=== PATIENT | female | born 1985 | race Caucasian/White ===

== ENCOUNTER 2019-07-16 03:31 | Inpatient (IN) ==
[2019-07-16] MEDS ORDERED: OXYTOCIN 30 UNITS/500 ML BAG IV PRN ×3 (04:23→14:51)
[2019-07-16 04:54] LABS: Mean Platelet Volume 9.5 fL (7.4-10.4); Platelet Count 217 K/uL (130-400); RDW Coefficient of Variation 13.6 % (11.5-14.5); RDW Standard Deviation 44.7 fL (36.4-46.3); White Blood Count 9.87 K/uL (4.8-10.8)
[2019-07-16 05:05] LABS: Mean Corpuscular Hgb Conc 33.3 g/dL (32-36)
[2019-07-16] MEDS: LACTATED RINGER'S 1,000 ML IV PRN ×2 (06:46→09:24)
--- NOTE | 2019-07-16 06:55 | History & Physical Report ---
Date of Service July 16, 2019 Assessment & Plan (1) Uterine contractions at greater than 20 weeks of gestation: 33 yo at 40.3 wks with contractions and cervical change VSS Afebrile GBS negative FHR reassuring Plan to IVF with filter, monitor, expectant management and anticipate (2) Post-term , 40-42 weeks of gestation: History of Present Illness Chief Complaint: Contractions Primary Care Provider: NO PCP Patient is a 33 yo at 40.3 wks who was scheduled for IOL for today She woke up with contractions at 01:45 am, got closer and more painful. No LOF/VB +FM No problems with this She is recently found out to have Patent Foramen ovale and need f/u with cardiology for CATARINO No other problems GBS negative Allergies Allergy/AdvReac Type Severity Reaction Status Date / Time cat dander Allergy Severe SHORTNESS Verified 07/16/19 03:47 OF BREATH pollen extracts Allergy Severe TREES- Verified 07/16/19 03:47 SHORTNESS OF BREATH Sulfa (Sulfonamide Allergy Mild RASH Verified 07/16/19 03:47 Antibiotics) Home Medications Home Medications Medication Instructions Recorded Confirmed Type docusate sodium [Colace] 100 mg PO TID 07/14/19 07/16/19 History vit no.[id number] 1 tab PO DAILY 07/14/19 07/16/19 History [ Vitamin] Patient History Medical History Anxiety PFO (patent foramen ovale) (~06/18/19) vascular technician recommended filter tubing for IV Social History Preferred Language: [place]ian Communication Ability: Effective Tenant Relations Coordinator Required: No Beliefs That Will Affect Care: None marital status: Current Living Situation: Family Other Information That Helps Us Care for You: No Feels Safe at Home: Yes Safety Concerns: Feels Safe At This Time Smoking Status: Never smoker Second Hand Exposure: No ; Hx Alcohol Use: No Hx Substance Use: No 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
[2019-07-16] MEDS ORDERED: fentaNYL citrate 100 MCG/2 ML VIAL ONE (08:44)
[2019-07-16] MEDS ORDERED: ePHEDrine sulfate 50 MG/ML AMP ONE (08:44)
[2019-07-16] MEDS ORDERED: BUPIVACAINE 0.25% 30 ML VIAL ONE (08:44)
[2019-07-16] MEDS ORDERED: fentaNYL 2MCG/ML ROPIV 1.25MG/ML 100 ML BAG EPI ONE (08:45)
--- NOTE | 2019-07-16 09:42 | Anesthesiology Consultation ---
Date of Service July 16, 2019 Assessment & Plan Chart Review Chart Review: Acceptable Risk for Labor Epidural Consults Requested none History Height/Weight Height: 5 ft 1.5 in Weight: 79.832 kg Allergies Allergy/AdvReac Type Severity Reaction Status Date / Time cat dander Allergy Severe SHORTNESS Verified 07/16/19 03:47 OF BREATH pollen extracts Allergy Severe TREES- Verified 07/16/19 03:47 SHORTNESS OF BREATH Sulfa (Sulfonamide Allergy Mild RASH Verified 07/16/19 03:47 Antibiotics) Medications Home Medications Medication Instructions Recorded Confirmed Last Taken docusate sodium [Colace] 100 mg PO TID 07/14/19 07/16/19 07/15/19 vit no.[id number] 1 tab PO DAILY 07/14/19 07/16/19 07/15/19 [ Vitamin] Active Medications Generic Name Dose Route Start Last Admin Trade Name Freq PRN Reason Stop Dose Admin Lactated Ringer's 1,000 mls @ 150 mls/hr 07/16/19 04:23 07/16/19 09:40 Lr IV 07/18/19 04:22 125 mls/hr .Q6H40M PRN Infusion L&D Protocol Protocol Past Medical History Medical History Anxiety PFO (patent foramen ovale) (~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
[2019-07-16] MEDS ORDERED: NALOXONE HCL 0.4 MG/1 ML VIAL/CARP IV PRN (09:43)
[2019-07-16] MEDS ORDERED: fentaNYL 2MCG/ML ROPIV 1.25MG/ML 100 ML BAG EPI PRN (09:43)
[2019-07-16] MEDS ORDERED: DiphenhydrAMINE HCL 50 MG/ML VIAL IV PRN (09:43)
[2019-07-16] MEDS ORDERED: ePHEDrine sulfate 50 MG/ML AMP IV PRN (09:43)
[2019-07-16] MEDS ORDERED: NALOXONE HCL 1 MG in SODIUM CHLORIDE 0.9% 1000ML 1,000 ML IV PRN (09:43)
[2019-07-16] MEDS ORDERED: NALBUPHINE HCL INJ 10 MG/ML AMP IV PRN (09:43)
--- NOTE | 2019-07-16 11:22 | Obstetrical Progress Note ---
Date of Service July 16, 2019 Assessment & Plan Admission and Anticipated Discharge Date Admission Date: July 16, 2019 Subjective Pt doing well FHR; CAT1 Ctx: Irregular VE:/-2 Pt agreeable to AROM Performed with amnio hook- clear fluid Discussed Pitocin augmentation if ctx do not increase in frequency,duration and intensity pt is agreeable Results & Data ([facility]) Vital Signs (Past 12 Hours) Vital Signs Temp Pulse Resp BP Pulse Ox 07/16/19 11:14 72 98 07/16/19 11:09 65 97 07/16/19 11:04 82 126/75 97 07/16/19 11:01 36.5 C 20 07/16/19 10:59 66 96 07/16/19 10:54 59 L 95 07/16/19 10:49 58 L 97 07/16/19 10:48 71 100/65 07/16/19 10:46 20 07/16/19 10:44 60 95 07/16/19 10:39 61 99 07/16/19 10:34 58 L 100 07/16/19 10:33 63 101/65 07/16/19 10:29 72 98 07/16/19 10:24 69 97 07/16/19 10:19 70 99 07/16/19 10:15 20 07/16/19 10:14 73 99 07/16/19 10:10 73 92 07/16/19 10:09 68 97 07/16/19 10:04 75 100 07/16/19 10:01 81 96/61 L 07/16/19 09:59 71 96 07/16/19 09:57 79 104/58 L 07/16/19 09:54 77 97 07/16/19 09:52 67 93/58 L 07/16/19 09:49 67 95 07/16/19 09:47 79 94 07/16/19 09:46 79 97/61 L 07/16/19 09:45 20 07/16/19 09:44 81 95 07/16/19 09:41 80 106/68 07/16/19 09:39 77 111/72 97 07/16/19 09:37 68 111/70 07/16/19 09:35 75 111/69 07/16/19 09:34 69 99 07/16/19 09:33 73 111/72 07/16/19 09:29 72 97 07/16/19 09:24 65 100 07/16/19 09:21 75 124/78 07/16/19 09:19 84 99 07/16/19 07:19 36.8 C 20 07/16/19 07:06 72 107/71 07/16/19 03:56 93 H 108/76 07/16/19 03:51 36.5 C 18
[2019-07-16] MEDS ORDERED: miSOPROStoL 200 MCG TAB ONE (14:42)
[2019-07-16] MEDS ORDERED: METHYLERGONOVINE MALEATE 0.2 MG/ML AMP ONE (14:42)
[2019-07-16] MEDS ORDERED: miSOPROStoL 200 MCG TAB PR ONE ×2 (14:51→15:53)
[2019-07-16] MEDS ORDERED: DIPHTHERIA/TETANUS/PERTUSSIS 0.5 ML SYR/VIAL IM ONE (14:51)
[2019-07-16] MEDS ORDERED: BENZOCAINE 20% AER SPR 82.5 GM CAN EXT PRN (14:51)
[2019-07-16] MEDS ORDERED: SUPERCREAM 0.870% 15 GM JAR EXT PRN (14:51)
[2019-07-16] MEDS ORDERED: HYDROCORTISONE ACETATE 25 MG SUPP PR PRN (14:51)
[2019-07-16] MEDS ORDERED: ACETAMINOPHEN 325 MG TAB PO PRN (14:51)
[2019-07-16] MEDS ORDERED: METHYLERGONOVINE MALEATE 0.2 MG/ML AMP IM ONE (14:51)
[2019-07-16] MEDS ORDERED: bisacodyL 10 MG SUPP PR PRN (14:51)
--- NOTE | 2019-07-16 15:03 | Delivery Summary ---
DATE OF OPERATION: 07/16/2019 DELIVERY NOTE The patient delivered a live female in left occiput anterior presentation with a right hand compound presentation. was delivered. Cord was clamped and cut after 1 minute. There was no nuchal cord. Inspection of the perineum showed no laceration or tears. Placenta was spontaneously delivered after cord blood was obtained. Inspection of the placenta showed grossly normal placenta. There was, however, small calcifications. The patient is post-dates. Placenta was therefore sent to pathology for pathological analysis. Estimated blood loss is 450 mL. Baby and mother are doing well in recovery. All instruments were removed from the vagina including retractors, sponge and laps and accounted for x2. I attest to the content of the Intraoperative Record and any orders documented therein. Any exception s are noted below.
--- NOTE | 2019-07-16 15:35 | Anesthesia Procedure Note ---
Date of Service July 16, 2019 Anesthesia Post Epidural Note Vital Signs Vital Signs: Temp Pulse Resp BP Pulse Ox 36.8 C 69 20 120/76 100 07/16/19 13:02 07/16/19 15:32 07/16/19 14:48 07/16/19 15:32 07/16/19 14:34 Pain Intensity Abdomen: Pain Intensity: 0 Notes Mental Status: alert / awake / arousable Nausea / Vomiting: adequately controlled Pain: adequately controlled Airway Patency, RR, SpO2: stable & adequate BP & HR: stable & adequate Hydration State: stable & adequate Neuraxial Anesthesia: was administered and sensory block is resolving Anesthetic Complications: no major complications apparent and Pt Satisfied with anesthetic care Epidural: Removed without complications and With tip intact
[2019-07-16] MEDS: IBUPROFEN 600 MG TAB PO PRN (20:14)
[2019-07-16] MEDS: DOCUSATE SODIUM 100 MG CAP PO SCH (20:14)
[2019-07-17] MEDS: IBUPROFEN 600 MG TAB PO PRN ×3 (03:39→15:58)
[2019-07-17 06:39] LABS: Hematocrit (blood only) 36.1 % (37-47); Hemoglobin 11.8 g/dL (12.0-16.0); Mean Corpuscular Hemoglobin 29.7 pg (25-34); Mean Corpuscular Hgb Conc 32.7 g/dL (32-36); Mean Corpuscular Volume 90.9 fL (80-100); Mean Platelet Volume 9.5 fL (7.4-10.4); Platelet Count 205 K/uL (130-400); RDW Coefficient of Variation 13.9 % (11.5-14.5); RDW Standard Deviation 45.9 fL (36.4-46.3); Red Blood Count 3.97 M/uL (4.2-5.4); White Blood Count 12.11 K/uL (4.8-10.8)
[2019-07-17] MEDS ORDERED: PRENATAL VITAMIN 1 TAB PO SCH (08:00)
[2019-07-17] MEDS ORDERED: FERROUS SULFATE 325 MG TAB PO SCH (08:00)
--- NOTE | 2019-07-17 08:01 | Obstetrical Progress Note ---
Date of Service July 17, 2019 Assessment & Plan Admission and Anticipated Discharge Date Admission Date: July 16, 2019 Subjective Patient is seen and examined. She feels well, no complaints. Ambulating without dizziness Voiding without difficulty Tolerating regular diet with out N&V Bleeding is minimal No fever/ chills/ CP/ SOB/ N&V/ Leg pain Breast feeding without problems Vital Signs Temp Pulse Pulse Resp BP BP Pulse Ox 07/17/19 03:35 36.4 C L 67 18 115/73 07/16/19 23:45 36.7 C 69 18 104/69 07/16/19 19:50 36.9 C 71 18 116/74 97 07/16/19 17:35 99 H 120/60 07/16/19 17:17 86 113/64 07/16/19 17:02 96 H 112/64 07/16/19 16:47 90 20 108/58 L 07/16/19 16:32 90 118/59 L 07/16/19 16:17 75 118/62 07/16/19 16:02 67 127/80 07/16/19 15:47 69 124/78 07/16/19 15:32 69 120/76 07/16/19 15:17 71 116/73 07/16/19 15:02 80 119/73 07/16/19 14:48 81 20 135/66 07/16/19 14:34 86 100 07/16/19 14:33 83 128/80 07/16/19 14:31 78 93 07/16/19 14:29 85 100 07/16/19 14:24 77 100 07/16/19 14:19 62 99 07/16/19 14:18 71 101/62 07/16/19 14:17 68 93 07/16/19 14:16 20 07/16/19 14:14 59 L 97 07/16/19 14:09 59 L 99 07/16/19 14:04 61 98 07/16/19 14:03 64 20 104/65 07/16/19 14:02 65 88 L 07/16/19 13:59 65 99 07/16/19 13:54 65 97 07/16/19 13:52 66 90 07/16/19 13:49 64 99 07/16/19 13:48 61 104/65 07/16/19 13:46 61 92 07/16/19 13:44 60 98 07/16/19 13:39 63 99 07/16/19 13:34 66 99 07/16/19 13:33 73 105/59 L 07/16/19 13:32 68 94 07/16/19 13:29 69 97 07/16/19 13:24 72 90 07/16/19 13:19 63 99/56 L 99 07/16/19 13:14 67 99 07/16/19 13:11 68 94 07/16/19 13:09 66 98 07/16/19 13:04 66 98 07/16/19 13:03 65 104/67 07/16/19 13:02 36.8 C 07/16/19 13:01 20 07/16/19 12:59 74 98 07/16/19 12:54 76 98 07/16/19 12:49 79 103/68 98 07/16/19 12:44 66 98 07/16/19 12:39 86 97 07/16/19 12:34 68 97 07/16/19 12:33 71 126/62 07/16/19 12:31 20 07/16/19 12:29 67 98 07/16/19 12:24 67 98 07/16/19 12:19 65 111/70 98 07/16/19 12:14 63 99 07/16/19 12:09 69 99 07/16/19 12:05 74 93 07/16/19 12:04 75 95 07/16/19 12:03 72 115/79 07/16/19 11:59 71 99 07/16/19 11:54 67 99 07/16/19 11:49 75 100 07/16/19 11:48 73 113/77 07/16/19 11:46 20 07/16/19 11:44 70 98 07/16/19 11:39 70 98 07/16/19 11:34 71 111/71 97 07/16/19 11:31 20 07/16/19 11:29 71 99 07/16/19 11:27 67 92 07/16/19 11:24 68 97 07/16/19 11:19 78 108/71 98 07/16/19 11:16 20 07/16/19 11:14 72 98 07/16/19 11:09 65 97 07/16/19 11:04 82 126/75 97 04/14/20 11:01 36.5 C 20 07/16/19 10:59 66 96 07/16/19 10:54 59 L 95 07/16/19 10:49 58 L 97 07/16/19 10:48 71 100/65 07/16/19 10:46 20 07/16/19 10:44 60 95 07/16/19 10:39 61 99 07/16/19 10:34 58 L 100 07/16/19 10:33 63 101/65 07/16/19 10:29 72 98 07/16/19 10:24 69 97 07/16/19 10:19 70 99 07/16/19 10:15 20 07/16/19 10:14 73 99 07/16/19 10:10 73 92 07/16/19 10:09 68 97 07/16/19 10:04 75 100 07/16/19 10:01 81 96/61 L 07/16/19 09:59 71 96 07/16/19 09:57 79 104/58 L 07/16/19 09:54 77 97 07/16/19 09:52 67 93/58 L 07/16/19 09:49 67 95 07/16/19 09:47 79 94 07/16/19 09:46 79 97/61 L 07/16/19 09:45 20 07/16/19 09:44 81 95 07/16/19 09:41 80 106/68 07/16/19 09:39 77 111/72 97 07/16/19 09:37 68 111/70 07/16/19 09:35 75 111/69 07/16/19 09:34 69 99 07/16/19 09:33 73 111/72 07/16/19 09:29 72 97 07/16/19 09:24 65 100 07/16/19 09:21 75 124/78 07/16/19 09:19 84 99 Intake and Output 07/16/19 07/17/19 07/17/19 22:59 06:59 14:59 Intake Total 666.667 / 1926.833 Output Total 1800 / 2200 Balance -1133.333 / -273.167 Intake: IV 666.667 / 1926.833 Lr 1,000 ml @ 150 mls/hr IV . 666.667 / 1914.867 Q6H40M PRN Rx#:[id number] Output: Urine 1800 / 1800 Lab Results 07/16/19 07/17/19 Range/Units 04:45 06:21 WBC 9.87 12.11 H (4.8-10.8) K/uL RBC 4.00 L 3.97 L (4.2-5.4) M/uL Hgb 12.0 11.8 L (12.0-16.0) g/dL Hct 36.0 L 36.1 L (37-47) % MCV 90.0 90.9 (80-100) fL MCH 30.0 29.7 (25-34) pg MCHC 33.3 32.7 (32-36) g/dL RDW Std Deviation 44.7 45.9 (36.4-46.3) fL RDW Coeff of Lokesh 13.6 13.9 (11.5-14.5) % Plt Count 217 205 (130-400) K/uL MPV 9.5 9.5 (7.4-10.4) fL PE: General: Alert, orientedx3, NAD Abd: soft, NT, fundus firm, below Umbilicus Perineum intact, Lochia rubra minimal Ext; NT, no edema AP: 33 yo s/p , ppd# 1 VSS Afebrile doing well Continue routine care Desires d/c tonight if baby will be All questions were answered Discussed when to call D/C home , f/u in office Results & Data ([facility]) Vital Signs (Past 12 Hours) Vital Signs Temp Pulse Resp BP 07/17/19 03:35 36.4 C L 67 18 115/73 07/16/19 23:45 36.7 C 69 18 104/69
[2019-07-17] MEDS: DOCUSATE SODIUM 100 MG CAP PO SCH (08:31)
[2019-07-17 11:44] VITALS: TEMP 97.7
[2019-07-17 16:31] VITALS: BP 125/76; PULSE 67; O2SAT 99
[2019-07-17] MEDS ORDERED: bisacodyL 5 MG TABEC PO SCH (20:00)
== END 2019-07-17 20:15 | disposition home or self-care (01) | DRG 807 ==
LOC: OPB 03:31 → 4S1 03:33 → 4S2 19:38